=== PATIENT | male | born 1970 | race Caucasian/White ===

== ENCOUNTER 2024-07-02 02:22 | Emergency (ER) | payer OTHER ==
[~2024-07-02] VITALS: Ht 175.3 cm; Wt 105.0 kg
[2024-07-02 02:28] VITALS: TEMP 37.1; O2SAT 100
[2024-07-02 03:16] LABS: BASOPHILS % 0.7 % (0.0-2.0); EOSINOPHILS % 0.7 % (0.0-5.0); HEMATOCRIT. 42.2 % (42.0-52.0); HEMOGLOBIN. 14.7 g/dL (14.0-18.0); LYMPHOCYTES % 21.9 % (20.0-50.0); MEAN CORPUSCULAR HGB CONC 34.9 g/dL (31.0-37.0); MEAN CORPUSCULAR VOLUME 91.7 fL (80.0-94.0); MEAN PLATELET VOLUME 8.9 fl (7.4-10.4); MONOCYTES % 7.3 % (2.0-8.0); NEUTROPHILS % 69.4 % (40.0-76.0); PLATELET 275 x1000/uL (130-400); RED CELL DISTRIBUTION WIDTH 13.1 % (11.6-14.6); WHITE BLOOD COUNT 10.2 x1000/uL (4.5-11.0)
[2024-07-02 03:24] LABS: CHLORIDE 105 mEq/L (98-107); POTASSIUM 3.7 mEq/L (3.5-5.1); SODIUM 141 mEq/L (136-145)
[2024-07-02 03:25] LABS: CALCIUM 9.7 mg/dL (8.7-10.4); CARBON DIOXIDE 25 mEq/L (21-32)
[2024-07-02 03:30] LABS: GLUCOSE 101 mg/dL (70-105); UREA NITROGEN BLOOD 22 mg/dL (9-23)
[2024-07-02] MEDS: HYDROCHLOROTHIAZIDE 25MG TABLET PO ONE (03:33)
[2024-07-02] MEDS: ACETAMINOPHEN 325MG TABLET PO ONE (03:34)
[2024-07-02] MEDS ORDERED: CEPH500C2 MT (04:02)
[2024-07-02] MEDS ORDERED: ACET-2708 MT (04:02)
[2024-07-02] MEDS: CEPHALEXIN 250MG CAPSULE PO NR (04:08)
[2024-07-02 04:09] VITALS: BP 181/108; PULSE 74; RESP 19; O2SAT 100
== END 2024-07-02 04:26 | disposition home or self-care (01) ==
LOC: ER 02:57
DX: L03.116 Cellulitis of left lower limb (principal); I10 Essential (primary) hypertension; I87.1 Compression of vein; Z88.8 Allergy status to other drugs, medicaments and biological substances; Z91.148 Patient's other noncompliance with medication regimen for other reason
CPT/HCPCS: 36415; 80048; 85025; 93971; 99284